=== PATIENT | female | born 1950 ===

== ENCOUNTER 2019-08-24 07:58 | Emergency (ER) | payer OTHER ==
[~2019-08-24] VITALS: Ht 157.5 cm; Wt 70.3 kg
[2019-08-24] MEDS ORDERED: SYNTHROID88 MCG PO (08:08)
[2019-08-24] MEDS ORDERED: ATORVASTATIN CA10 MG PO (08:08)
[2019-08-24] MEDS ORDERED: MAGNEBIND 4001 EACH PO (08:10)
[2019-08-24] MEDS ORDERED: ZINC50 M1 PO (08:10)
[2019-08-24] MEDS ORDERED: LUTEIN40 MG PO (08:11)
== END 2019-08-24 13:27 | disposition home or self-care (01) ==
LOC: ER 07:58
DX: R07.89 Other chest pain (principal)